=== PATIENT | male | born 1970 | race Caucasian/White ===

== ENCOUNTER → 2016-11-28 | Outpatient (CLI) | payer BC ==
--- NOTE | 2016-11-28 18:32 | DI ---
MRI LUMBAR SPINE SCAN WITHOUT IV CONTRAST, 11/28/2016 2:59 PM: Clinical History: Left-sided low back pain with radiculopathy. Previous Exam: None. Technique: Sagittal and axial T2 weighted; sagittal T1 weighted and T2 STIR; and axial PD. The vertebral bodies are of normal height and size. There is mild L3-4 disc space narrowing. The marichuy ining disc spaces are of normal height. All lumbar disc spaces show mild to moderate desiccation lerma ge. The cord terminates at T12. The conus medullaris is normal. The T10-11 through T12-L1 disc spaces are normal. There is a large left-sided perineural diverticulum exiting through the T12-L1 neural fo ramen. The L1-2 disc space has a right anterolateral focal disc herniation without causing spinal can al or neural foraminal stenosis. There is an associated disc annulus tear. The L2-3 through L4-5 disc spaces are normal. L5-S1 has a focal left-sided disc herniation that is displacing the left S1 nerve root posteriorly just before the nerve root enters the lateral recess of L5. There is no canal or ne ural foraminal stenosis. Readin. There is a small focal disc herniation on the left side at L5-S1 that is displacing the left S1 n erve root posteriorly. There is no canal or neural foraminal stenosis. 2. There is small focal right anterolateral disc herniation at L1-2 without canal or neural foramina l stenosis. 3. The disc spaces from T10-11 through T12-L1 and from L2-3 through L4-5 are normal. There is a larg e left perineural cyst or diverticulum exiting through the left T12-L1 neural foramen.
== END ==
LOC: MRI 14:52
PROVIDERS: ATTEND Orthopaedic Surgery
DX: M54.16 Radiculopathy, lumbar region (principal); M51.17 Intervertebral disc disorders with radiculopathy, lumbosacral region; M51.26 Other intervertebral disc displacement, lumbar region
CPT/HCPCS: 72148